=== PATIENT | female | born 1935 | race Caucasian/White ===

== ENCOUNTER 2020-12-16 18:15 | Observation (INO) | payer MEDICARE, SELFPAY ==
[2020-12-16] VITALS (29 sets, daily range): BP systolic 134–159; BP diastolic 70–93; PULSE 72–94; RESP 15–24; TEMP 36.8; O2SAT 94–98
--- NOTE | ~2020-12-16 | XR_ITS ---
EXAMINATION: XR chest 2V EXAM DATE: 12/16/2020 20:27 INDICATION: Syncope, shaking. Tired. Atrial fibrillation, CHF. TECHNIQUE: Frontal and lateral projections of the chest obtained and reviewed. There is no prior vishnu dy for comparison. FINDINGS: Moderate cardiomegaly. There is aortic arteriosclerosis. No confluent consolidation, pneum othorax or pleural effusion suspected. Dense mitral annular calcifications. Sternotomy wires are pres ent without findings to suggest sternal dehiscence. The bones are osteopenic. There are bony degener ative changes. Multiple treated thoracolumbar compression fractures several untreated thoracic compre ssion fractures. IMPRESSION: 1. Cardiomegaly, congestion. 2. Chronic findings. Reviewed, dictated and finalized at location A.
--- NOTE | ~2020-12-16 | CT_ITS ---
EXAMINATION: CT brain wo [facility] EXAM DATE: 12/16/2020 20:23 INDICATION: Syncope. Seizure. TECHNIQUE: Spiral CT of the head was performed without contrast. Axial, coronal and sagittal images were reviewed. The dose-length product (DLP) for this examination was 605.33 mGy-cm. The exposure w as tailored according to patient size, and iterative reconstruction (ASIR) was used as additional dos e reduction technique. There is no prior study for comparison. FINDINGS: There is no acute intraparenchymal hemorrhage. No evidence of intraparenchymal brain mass lesion. No evidence of acute infarction. Please note that initial head CT has limited sensitivity f or small or acute infarctions. There is mild periventricular and subcortical hypodensity, nonspecific but probably related to small vessel ischemic disease. There is mild to moderate prominence of the sulci and ventricles related to cerebral atrophy. There is intracranial carotid arteriosclerosis. There are no extra-axial collections. There is no mass effect or midline shift. Patient has had bi lateral ocular lens surgery. Soft tissue is unremarkable. The visualized sinuses and mastoid air ce lls are well aerated. IMPRESSION: 1. No acute intracranial findings. 2. Chronic age related findings. Reviewed, dictated and finalized at location A.
--- NOTE | ~2020-12-16 | US_ITS ---
EXAMINATION: US carotid duplex BI DATE: 12/17/2020 12:53 INDICATION: Syncope. TECHNIQUE: Grayscale, color Doppler, and pulsed Doppler images of the cervical carotid arteries were obtained. The degree of vessel stenosis is placed in one of the following categories: normal, <50%, 5 0-69%, >=70% but less than near-occlusion, near-occlusion, or total occlusion. Note that percent sten osis relative to normal distal artery lumen diameter is indirectly measured from velocity measurement s as described by Austin, et al. Radiology 2003; 229:340-346. COMPARISON: None. FINDINGS: There is an arrhythmia. RIGHT: The right common carotid artery (CCA) peak systolic velocity (PSV) is 78 cm/s. The right internal car otid artery (ICA) PSV is 100 cm/s. The right ICA end-diastolic velocity (EDV) is 21 cm/s. The right I CA/CCA PSV ratio is 1.3. Grayscale and color Doppler images yield an estimate of <50% diameter reduct ion from plaque in the ICA. There is antegrade flow in the right vertebral artery. LEFT: The left CCA PSV is 84 cm/s. The left ICA PSV is 67 cm/s. The left ICA EDV is 5 cm/s. The left ICA/CC A PSV ratio is 0.8. Grayscale and color Doppler images yield an estimate of <50% diameter reduction f rom plaque in the ICA. There is antegrade flow in the left vertebral artery. IMPRESSION: 1. <50% stenosis in the right internal carotid artery. 2. <50% stenosis in the left internal carotid artery. 3. Arrhythmia. Reviewed, dictated and finalized at location A.
--- NOTE | ~2020-12-16 | MR_ITS ---
EXAMINATION: MR brain/brain stem wo/w con DATE: 12/17/2020 12:32 INDICATION: Seizure. TECHNIQUE: Magnetic resonance imaging (MRI) of the brain and brainstem was performed without and with 9 mL MultiHance intravenous contrast. Sequences included sagittal and axial T1-weighted FSE, axial d iffusion-weighted FS EPI, axial T2*-weighted GRE, axial T2-weighted FLAIR Propeller, and axial T2-mandeep ghted Propeller. Postcontrast sequences included axial, sagittal, and coronal T1-weighted FSE. Appare nt diffusion coefficient (ADC) maps were created. COMPARISON: Head CT 12/16/2020 FINDINGS: There are scattered areas of nonspecific increased T2-weighted signal intensity in the cere bral white matter and narciso. There are small old infarcts in the cerebellum bilaterally. There is no i ntracranial hemorrhage, acute infarction, or abnormal intracranial mass lesion. The ventricles are no rmal in size. There are likely changes of ocular lens replacement surgeries. The paranasal sinuses ar e clear. The mastoid air cells are normal. IMPRESSION: 1. 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 2. Mild nonspecific cerebral white matter disease and pontine disease, which likely represents chroni c small vessel ischemic disease. Reviewed, dictated and finalized at location A. IMPRESSION: 1. 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 2. Mild nonspecific cerebral white matter disease and pontine disease, which al hernandez represents chronic small vessel ischemic disease.
--- NOTE | 2020-12-16 18:55 | ECG_ITS ---
Measurements Intervals Brooks Rate: 80 P: IA: 0 QRS: 120 QRSD: 106 T: -25 QT: 367 QTc: 426 Interpretive Statements ATRIAL FIBRILLATION INCOMPLETE RIGHT BUNDLE BRANCH BLOCK HIGH LATERAL INFARCT, AGE INDETERMINATE BORDERLINE ST-T WAVE ABNORMALITY- INFERIOR LEADS BASELINE ARTIFACT- V3-V6 ABNORMAL ECG Electronically Signed On 12-16-2020 20:37:17 CDT by Krystian Lester D.O.
[2020-12-16 19:18] LABS: Basophils Absolute Auto 0.1 K/mm3 (0.0-0.1); Eosinophils Absolute Auto 0.1 K/mm3 (0-0.3); Eosinophils Percent Auto 2.7 % (0-4.4); Hematocrit 40.1 % (37.0-47.0); Hemoglobin 12.6 g/dL (12.0-15.0); Immature Granulocyte Absolute 0.01 K/mm3 (0.00-0.031); Immature Granulocyte Percent A 0.2 % (0-0.5); Lymphocytes Absolute Auto 0.41 K/mm3 (0.9-3.2); Lymphocytes Percent Auto 8.5 % (18.3-44.2); Mean Corpuscular HGB Conc 31.4 g/dl (32-36); Mean Corpuscular Hemoglobin 30.8 pg (26-34); Mean Platelet Volume 9.9 fl (7.4-10.4); Monocytes Absolute Auto 0.5 K/mm3 (0.1-0.6); Monocytes Percent Auto 11.1 % (2.6-8.5); Neutrophils Absolute Auto 3.7 K/mm3 (1.3-6.7); Neutrophils Percent Auto 76.5 % (45.5-73.1); Platelet Count Result 200 k/mm3 (150-375); Red Blood Count 4.09 M/mm3 (4.2-5.4); Red Cell Distribution Width 14.7 % (11.5-14.5); White Blood Count 4.9 K/mm3 (4.5-10.0)
[2020-12-16 19:34] LABS: Anion Gap 9 mmol/L (8-16); Blood Urea Nitrogen 21 mg/dL (7-17); Calcium 9.5 mg/dL (8.4-10.2); Carbon Dioxide 30 mmol/L (22-30); Chloride 100 mmol/L (98-107); Estimated CRCL calculation 25 ml/min; Estimated Glomerular Filt Rate 47; Glucose 126 mg/dL (65-105); Potassium 4.4 mmol/L (3.4-5.0); Sodium 139 mmol/L (137-145)
--- NOTE | 2020-12-16 19:53 | ED.SYNCOPE ---
HPI - Syncope General Chief Complaint: Syncope Stated Complaint: Period of unresponsiveness Time Seen by Provider: 12/16/20 19:23 Source: patient, family and RN notes reviewed Mode of arrival: EMS Limitations: no limitations History of Present Illness HPI narrative: This is an 85 year old female with history CHF, atrial fibrillation who presents for evaluation of a possible syncopal episode. Patient's daughter in law states patient walked into the living room after eating. PAtient's son heard patient drop her glass and he found her slumped over. He told patient's daughter in law that he saw patient shaking all extremities and her eyes were closed. Patient would not respond to them for 5 minutes when they called her name. Patient's daughter in law report patient had a blank stare for a few minutes once she opened her eyes. Shortly afterwards, she started talking and she did not have any confusion. Patient is back to her baseline. Patient states she feels fine and she denies feeling bad prior to this episode. Patient recently moved in with her son and daughter in law 2 weeks ago so she does not have primary care in this area. Related Data Home Medications Medication Instructions Recorded Confirmed apixaban [Eliquis] 2.5 mg PO BID 12/16/20 carvedilol 6.25 mg PO BID 12/16/20 digoxin 125 mcg PO DAILY 12/16/20 furosemide 40 mg PO BID 12/16/20 potassium chloride [Klor-Con M20] 20 meq PO BID 12/16/20 Allergies Allergy/AdvReac Type Severity Reaction Status Date / Time No Known Allergies Allergy Unverified 12/16/20 18:31 Review of Systems Review of Systems: All systems reviewed & are unremarkable except as noted in HPI and below Constitutional: Constitutional: Denies chills and Denies fever(s) Eyes: Eyes: Denies change in vision Cardiovascular: Cardiovascular: Denies chest pain Respiratory: Respiratory: Denies cough and Denies dyspnea Gastrointestinal: Gastrointestinal: Denies abdominal pain, Denies nausea and Denies vomiting Neurologic: Denies headache(s) and Denies weakness PMFSH Past Medical History Medical History (Updated 12/16/20 @ 21:04 by Gaviota Beckford MD) Atrial fibrillation CHF (congestive heart failure) Social History Social History (Updated 12/16/20 @ 19:58 by Gaviota Beckford MD) Smoking status: Never smoker Exam Const: General: no acute distress and alert Orientation/consciousness: patient oriented x3 Eyes: EOM: EOMs intact bilaterally Resp: Effort & Inspection: normal respiratory effort and no retractions Auscultation: clear to auscultation bilaterally Cardio: Rate: regular rate Rhythm: abnormal rhythm Heart sounds: Murmur heart sound present GI: GI Palp: Yes Soft to palpation, No Tenderness to palpation present (GI) and No Guarding due to palpation present (GI) Auscultation: normal bowel sounds Skin: Other: bilateral lower leg hyperpigmentation Neuro: General: patient oriented x3, moves all extremities and CN's II-XI intact bilaterally Extrem: General: edema Psych: Mental Status: mental status grossly normal Affect: normal affect Course Reevaluation(s) Reevaluation #1: I discussed evaluation with patient and her daughter in law. They are agreeable to observation for evaluation of syncope vs seizure. Date: 12/16/20 Time: 21:01 Consultations Consultation #1: I have discussed case with Dr. Johnson who accepts patient to medical floor for evaluation. She recommends MRI, echo, carotid doppler Date: 12/16/20 Time: 21:02 Vital Signs Vital signs: Vital Signs Temperature 98.3 F 12/16/20 18:21 Pulse Rate 82 12/16/20 18:21 Respiratory Rate 24 H 12/16/20 18:21 Blood Pressure 142/74 H 12/16/20 18:21 Pulse Oximetry 96 12/16/20 18:21 Temperature 98.3 F 12/16/20 18:21 Pulse Rate 85 12/16/20 20:49 Respiratory Rate 19 12/16/20 20:45 Blood Pressure 145/80 H 12/16/20 20:46 Pulse Oximetry 95 12/16/20 20:49 MDM
[2020-12-16 20:13] LABS: Magnesium 2.3 mg/dL (1.6-2.3)
[2020-12-16 20:17] LABS: Digoxin 0.6 ng/mL (0.8-2.0)
[2020-12-16 20:26] LABS: Troponin I < 0.012 ng/mL (0.000-0.034)
[2020-12-16 21:10] LABS: Add Urine Microscopic? YES; Appearance Urine Cloudy (Clear); Bacteria Urine Trace /hpf; Bilirubin Urine Negative (Negative); Blood Urine Negative (Negative); Color Urine Yellow (Yellow); Glucose Urine UA Negative (Negative); Ketones Urine Negative (Negative); Leukocyte Esterase Ur Negative LEU/UL (Negative); Nitrate Urine Positive (Negative); Protein Urine 1+ mg/dL (Negative); RBC Urine 0-2 /hpf (0-2); Specific Grav Ur 1.012 (1.001-1.035); Squamous Epithelial Cell Urine Rare /hpf (Few); Urobilinogen Urine Negative mg/dL (<2.0)
--- NOTE | 2020-12-16 22:29 | ADMGEN ---
This patient, Zee Mccracken, was admitted to 3 Med Surg Room 307-02. Patient/family oriented to hospital policies and general routines including ID bracelet, bed and alarms, visiting hours, pain management, procedures, bathroom and other care routines, personal items, smoking policy, room service/diet, and visiting hours. Information on how to activate the Rapid Response Team has been discussed. Patient/Family are encouraged to report perceived risks to care and to ask questions if they do not understand what they are told or what they should do.
[2020-12-17] VITALS (11 sets, daily range): BP systolic 107–125; BP diastolic 58–71; PULSE 50–88; RESP 16–18; TEMP 36.6–36.9; O2SAT 90–96; BMI 17.6
--- NOTE | 2020-12-17 04:27 | PM.IMHP ---
H&P: HPI History of Present Illness Date/Time: 12/17/20 04:27 Chief Complaint: syncope Narrative: this is an 85-year-old female with past medical history significant for coronary artery disease status post coronary artery bypass graft: On chronic anticoagulation for atrial fibrillation rate controlled, congestive heart failure. patient was brought to the emergency room after she had supper and was sitting she was noted to dropped her mom good and was slumped over which lasted for roughly 5 minutes according to daughter in-law diet is at bedside. patient denies any issues at the time of my visit she has been her usual state of health she just recently moved in with her son and daughter in [place] and things seem to be okay up until after supper when did is episode took place. patient denies any fevers rigors chills chest pain PND orthopnea shortness of breath cough sputum production nausea vomiting diarrhea or abdominal pain. preliminary workup was essentially nonrevealing decision has been made to place patient in observation. Review of Systems Review of Systems: Narrative: syncope Constitutional: Constitutional: Denies fatigue, Denies fever(s) and Denies weakness Eyes: Eyes: Denies change in vision ENT: Denies nasal congestion, Denies nasal discharge and Denies nasal obstruction Cardiovascular: Cardiovascular: Denies chest pain, Denies chest pain at rest, Denies irregular heart rhythm, Denies lightheadedness, Denies radiating jaw, neck or arm pain, Denies palpitations, Denies dyspnea and Denies dyspnea on exertion Respiratory: Respiratory: Denies cough, Denies dyspnea and Denies wheezing Gastrointestinal: Gastrointestinal: Denies abdominal pain, Denies diarrhea, Denies nausea and Denies vomiting Genitourinary: Genitourinary: Reports no additional female genitourinary complaints Musculoskeletal: Musculoskeletal: Reports no additional musculoskeletal complaints Integumentary/Breasts: Skin/Breast: Reports system reviewed and no additional complaints, except as docu Neurologic: Reports system reviewed and no additional complaints, except as documented Psychiatric: Psychiatric: Reports no additional psychiatric complaints Endocrine: Endocrine: Reports no additional endocrine complaints Hematologic/Lymphatic: Hematologic/Lymphatic: Reports no additional hematologic/lymphatic complaints Allergic/Immunologic: Allergic/Immunologic: Reports no additional allergic/immunologic complaints [facility] Past Medical History Medical History (Updated 12/17/20 @ 04:37 by Ector Johnson MD) Atrial fibrillation CHF (congestive heart failure) Family History Family History (Updated 12/16/20 @ 22:32 by Maria Eugenia Le RN) Father Acute myocardial infarction Cerebrovascular accident Social History Social History (Updated 12/16/20 @ 19:58 by Gaviota Beckford MD) Smoking status: Never smoker Alcohol intake: never Substance use: never Gender identity (if verbalized by the patient): Female Spiritual care concerns: No Meds Home Medications and Allergies Home Medications Medication Instructions Recorded Confirmed Type apixaban [Eliquis] 2.5 mg PO BID 12/16/20 12/16/20 History carvedilol 6.25 mg PO BID 12/16/20 12/16/20 History digoxin 125 mcg PO DAILY 12/16/20 12/16/20 History furosemide 40 mg PO BID 12/16/20 12/16/20 History potassium chloride [Klor-Con M20] 20 meq PO BID 12/16/20 12/16/20 History Allergies Allergy/AdvReac Type Severity Reaction Status Date / Time No Known Allergies Allergy Verified 12/16/20 23:28 Vital Signs Vital Signs - 24 hr 12/16/20 18:21 12/16/20 18:25 12/16/20 18:26 Temperature 98.3 F Pulse Rate 82 84 78 Respiratory Rate 24 H 15 Blood Pressure 142/74 H Pulse Oximetry 96 95 96 12/16/20 18:27 12/16/20 18:30 12/16/20 18:45 Temperature Pulse Rate 88 81 86 Respiratory Rate 16 Blood Pressure Pulse Oximetry 97 96 95 12/16/20 18:47 12/16/20 18:56 12/16/20
--- NOTE | 2020-12-17 06:00 | ECHO_ITS ---
Patient Info Name: Zee Mccracken Age: 85 years : 1935 Gender: Female Ht: 64 in Wt: 102 lbs BSA: 1.44 m2 HR: 69 bpm BP: 125 / 58 mmHg Heart Rhythm: Atrial Fibrillation Technical Quality: Good Exam Date: 12/17/2020 10:15 AM Exam Location: [facility] Patient Status: Outpatient Admit Date: 12/16/2020 Staff Ordering Physician: Gaviota Beckford MD Inclusion Special Education Teacher: Jd Boyle RDCS, RT Attending Provider: Yana Ayala PA-C Referring Physician: Shakeel ZAYAS; Exam Type: CA echo doppler color flow Study Info Indications I50.9 - Heart failure, unspecified Complete two-dimensional, color flow and Doppler transthoracic echocardiogram is performed. Strain analysis performed. Summary 1. Complete two-dimensional, color flow and Doppler transthoracic echocardiogram is performed. 2. Left ventricular chamber dimension is normal. 3. Left ventricular systolic function is hyperdynamic, estimated at >70%. 4. There is mildly increased left ventricular wall thickness. 5. Global longitudinal strain is normal at -19 %. 6. Right ventricular chamber dimension is severely enlarged. 7. Right ventricular systolic function appears moderately reduced with a TAPSE of 0.9. 8. Right atrial chamber dimension is severely enlarged. 9. There is mild highly eccentric aortic valve regurgitation. Severity may be underestimated due to eccentricity. 10. There is torrential tricuspid valve regurgitation. 11. Mild pulmonary hypertension, estimated pulmonary arterial systolic pressure is 41 mmHg. 12. Severely dilated inferior vena cava at 4.4cm with no collapse upon inspiration consistent with significantly elevated right atrial pressure, >15 mmHg. Left Ventricle Left ventricular chamber dimension is normal. Left ventricular systolic function is hyperdynamic, estimated at >70%. There is mildly increased left ventricular wall thickness. The left ventricular diastolic function is indeterminate. Global longitudinal strain is normal at -19 %. Right Ventricle Right ventricular chamber dimension is severely enlarged. Right ventricular systolic function appears moderately reduced with a TAPSE of 0.9. Left Atria Left atrial chamber dimension is mildly enlarged. Right Atria Right atrial chamber dimension is severely enlarged. Aortic Valve The aortic valve is trileaflet. There is mild aortic valve sclerosis. There is no aortic valve stenosis. There is mild highly eccentric aortic valve regurgitation. Severity may be underestimated due to eccentricity. Pulmonic Valve The pulmonic valve is normal. There is mild to moderate pulmonic regurgitation. Mitral Valve The mitral valve has thickened leaflets and calcified leaflets. There is mild mitral valve regurgitation. The mitral valve annulus is severely calcified. No hemodynamically significant mitral stenosis. Tricuspid Valve The tricuspid valve leaflets are normal. There is torrential tricuspid valve regurgitation. Mild pulmonary hypertension, estimated pulmonary arterial systolic pressure is 41 mmHg. Pericardium/Pleural The pericardium appears normal. There is no pericardial effusion. Inferior Vena Cava Severely dilated inferior vena cava at 4.4cm with no collapse upon inspiration consistent with significantly elevated right atrial pressure, >15 mmHg. Aorta The aortic root size at the sinus of Valsalva is normal. There is mild aortic atherosclerosis. Left Ventricular Outflow Tract
[2020-12-17 06:49] LABS: NT Pro B Type Natriuretic Pept 6230 pg/mL (5-100)
[2020-12-17] MEDS: FUROSEMIDE 40 MG TABLET PO ×2 (11:34→16:37)
[2020-12-17] MEDS: DIGOXIN TAB 125 MCG TABLET PO (11:34)
[2020-12-17] MEDS: carvediloL 6.25 MG TABLET PO ×2 (11:34→16:37)
[2020-12-17] MEDS: APIXABAN 2.5 MG TABLET PO ×2 (11:35→22:11)
[2020-12-17] MEDS: POTASSIUM CHLORIDE 20 MEQ TABLET.ER PO ×2 (11:35→16:37)
--- NOTE | 2020-12-17 16:34 | PM.IMPN ---
Progress Note: A&P Assessment and Plan (1) Syncope and collapse: Code(s): R55 - Syncope and collapse Status: Acute Assessment and Plan: Patient reportedly was walking into the living room after sitting at the dinner table and slumped over. Family reports she felt fine and was alert once she regained attention but did not recall the event. Etiology unclear; may be related to vasovagal response vs. arrhythmia. She is known to have a fib but has had two 3-second pauses identified on telemetry. MRI brain shows old strokes, unknown to patient and discussed with patient and family. No evidence of acute stroke. Carotid US normal. Echocardiogram noted. PT/OT, observe overnight and hopeful for discharge tomorrow after arranging Holter monitor for outpatient evaluation. Follow up with cardiology -She wants to follow with one of our cardiologists (used to see a carbon grinder in [place] years ago and has not followed with anyone in recent years). (2) Atrial fibrillation: Code(s): I48.91 - Unspecified atrial fibrillation Status: Acute Assessment and Plan: Continue digoxin, carvedilol. Continue apixaban. (3) CHF (congestive heart failure): Code(s): I50.9 - Heart failure, unspecified Status: Chronic Assessment and Plan: Appears euvolemic. Continue carvedilol and digoxin. BNP elevated. Resume her Lasix. Monitor I&Os, daily weights. Echocardiogram shows EF 70% with severe right atrial and ventricular enlargement; mild pulmonary hypertension, aortic and tricuspid regurgitation (4) Coronary artery disease: Code(s): I25.10 - Atherosclerotic heart disease of [place] coronary artery without angina pectoris Status: Chronic Assessment and Plan: Stable, no chest pain. 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 Subjective Date/time seen: 12/17/20 1430 Interval history: Ms. Mccracken is an 85yo F admitted for evaluation after syncopal episode. She reports feeling well today. She has had two pauses on telemetry with which she is completely asymptomatic today. She denies chest pain, palpitations, shortness of breath, nausea or vomiting. She does not remember passing out yesterday. Family reports she was completely alert right after waking back up. Tells me she is eating and drinking okay. No dizziness or lightheadedness today. Review of Systems Review of Systems: All systems reviewed & are unremarkable except as noted in HPI and below Exam Narrative: Exam Narrative: General: Frail elderly female resting comfortably sitting up in bed in no acute distress, visiting with family. HEENT: Normocephalic, EOMI, oral mucosa moist. Cardiovascular: Rate is normal, rhythm irregular. Two 3-second pauses noted on telemetry with quick recoveries of rates back into 70s. Telemetry otherwise showing A fib. Respiratory: Lungs clear to auscultation bilaterally. Respirations even and non-labored. Tolerating room air. Abdomen: Soft, non-tender, non-distended, bowel sounds present. Extremities: Peripheral pulses intact. No edema or pain to palpation. Neuro: Awake and alert; answering questions appropriately. No focal neurological deficits. Speech is clear. Objective Data Vital Signs Vital Signs: Last Vital Signs Temp 98.0 F 12/17/20 14:00 Pulse 64 12/17/20 16:37 Resp 16 12/17/20 14:00 BP 114/63 12/17/20 14:00 Pulse Ox 94 12/17/20 14:00 Intake/Output Intake/Output: Intake & Output 12/14/20 12/15/20 12/16/20 12/17/20 23:59 23:59 23:59 23:59 Intake Total 740 Output Total 400 Balance 340 Meds/Results Medications: Active Medications Generic Name Dose Route Start Last Admin Trade Name Freq PRN Reason Stop Dose Admin Apixaban 2.5 mg 12/17/20 09:00 12/17/20 11:35 Apixaban 2.5 Mg Tablet PO 2.5 mg Q12HR GILBERTO
[2020-12-18] VITALS (8 sets, daily range): BP systolic 100–146; BP diastolic 63–86; PULSE 60–78; RESP 17; TEMP 36.4; O2SAT 94
[2020-12-18 06:19] LABS: Hematocrit 35.2 % (37.0-47.0); Hemoglobin 11.1 g/dL (12.0-15.0); Mean Corpuscular HGB Conc 31.5 g/dl (32-36); Mean Corpuscular Hemoglobin 30.5 pg (26-34); Mean Corpuscular Volume 96.7 fl (80-100); Mean Platelet Volume 10.1 fl (7.4-10.4); Platelet Count Result 170 k/mm3 (150-375); Red Blood Count 3.64 M/mm3 (4.2-5.4); Red Cell Distribution Width 14.5 % (11.5-14.5); White Blood Count 5.1 K/mm3 (4.5-10.0)
[2020-12-18 06:27] LABS: Chloride 101 mmol/L (98-107)
[2020-12-18 06:32] LABS: Anion Gap 6 mmol/L (8-16); Blood Urea Nitrogen 15 mg/dL (7-17); Carbon Dioxide 30 mmol/L (22-30); Estimated CRCL calculation 34 ml/min; Estimated Glomerular Filt Rate > 60; Glucose 89 mg/dL (65-105); Magnesium 2.1 mg/dL (1.6-2.3); Potassium 3.4 mmol/L (3.4-5.0); Sodium 137 mmol/L (137-145)
[2020-12-18] MEDS: carvediloL 6.25 MG TABLET PO (08:03)
[2020-12-18] MEDS: POTASSIUM CHLORIDE 20 MEQ PACKET (FOR LIQUID) PO (08:03)
[2020-12-18] MEDS: DIGOXIN TAB 125 MCG TABLET PO (08:05)
[2020-12-18] MEDS: APIXABAN 2.5 MG TABLET PO (08:05)
[2020-12-18] MEDS: POTASSIUM CHLORIDE 20 MEQ TABLET.ER PO (08:05)
[2020-12-18] MEDS: FUROSEMIDE 40 MG TABLET PO (08:05)
--- NOTE | 2020-12-18 08:41 | PM.DS ---
DS: Admitting Diagnosis Admitting Diagnosis Admitting Diagnosis: Syncope DS: Discharge Diagnosis Discharge Diagnosis (1) Syncope and collapse: Code(s): R55 - Syncope and collapse Status: Acute Assessment and Plan: Date of Admission 12/16/20 Date of Discharge 12/18/20 Ms. Mccracken is a pleasant 85yo F with history of paroxysmal atrial fibrillation, CHF, and coronary artery disease who presented to the ED for evaluation after a syncopal episode at a family member's house. Patient reportedly was walking into the living room after sitting at the dinner table and slumped over. She did not fall. Family reports she felt fine and was alert once she regained attention but patient did not recall the event. Etiology unclear; may be related to vasovagal response vs. arrhythmia. She is known to have a fib but has had two 3-second pauses identified on telemetry. She is discharged with an order for Holter monitor and will go downstairs to the cardiology office to have it placed prior to leaving the hospital today. Follow up with cardiology is recommended. She wants to follow with one of our cardiologists (used to see a sports physical therapist in [place] years ago and has not followed with anyone in recent years). MRI brain shows old strokes, unknown to patient and discussed with patient and family. No evidence of acute stroke. Carotid US normal. Echocardiogram noted and detailed below. Worked well with PT/OT. She is feeling well for over 24 hours and is hemodynamically stable for discharge home. Patient and family are in agreement for discharge plan and will follow up with PCP and cardiology. Educated on return to ER instructions. (2) Atrial fibrillation: Code(s): I48.91 - Unspecified atrial fibrillation Status: Acute Assessment and Plan: Continue digoxin, carvedilol. Continue apixaban. (3) CHF (congestive heart failure): Code(s): I50.9 - Heart failure, unspecified Status: Chronic Assessment and Plan: Appears euvolemic. Continue carvedilol and digoxin. BNP elevated. Home lasix resumed. Echocardiogram shows EF 70% with severe right atrial and ventricular enlargement; mild pulmonary hypertension, aortic and tricuspid regurgitation (4) Coronary artery disease: Code(s): I25.10 - Atherosclerotic heart disease of [place] coronary artery without angina pectoris Status: Chronic Assessment and Plan: Stable, no chest pain. 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 DS: Summary Hospital Course Hospital Course: See above Time Spent with Patient Time attestation: Total time spent providing and/or coordinating discharge services: 40 minutes Exam Narrative: Exam Narrative: General: Frail elderly female resting comfortably sitting up in bed in no acute distress, visiting with family. HEENT: Normocephalic, EOMI, oral mucosa moist. Cardiovascular: Rate is normal, rhythm irregular. Two 3-second pauses noted on telemetry with quick recoveries of rates back into 70s. Telemetry otherwise showing A fib. Respiratory: Lungs clear to auscultation bilaterally. Respirations even and non-labored. Tolerating room air. Abdomen: Soft, non-tender, non-distended, bowel sounds present. Extremities: Peripheral pulses intact. No edema or pain to palpation. Neuro: Awake and alert; answering questions appropriately. No focal neurological deficits. Speech is clear. DS: Data Additional Comments Additional comments: Last Vital Signs Temp 97.5 F L 12/18/20 05:22 Pulse 78 12/18/20 12:00 Resp 17 12/18/20 05:22 BP 146/79 H 12/18/20 10:53 Pulse Ox 94 12/18/20 05:[address] 12/16/20 20:24 IMPRESSION: 1. No acute intracranial findings. 2. Chronic age related findings. Chest X-Ray 0
== END 2020-12-18 13:30 | disposition home or self-care (01) ==
LOC: ANHED 21:04 → ANH3MEDSUR 21:54
PROVIDERS: Emergency Medicine; Physician Assistant; Admitting Provider Internal Medicine; Emergency Provider General Practice; Visit Provider Internal Medicine
DX: R55 Syncope and collapse (principal); R82.71 Bacteriuria; B96.20 Unspecified Escherichia coli [E. coli] as the cause of diseases classified elsewhere; I48.91 Unspecified atrial fibrillation; I11.0 Hypertensive heart disease with heart failure; I50.9 Heart failure, unspecified; I25.10 Atherosclerotic heart disease of native coronary artery without angina pectoris; Z95.1 Presence of aortocoronary bypass graft; Z79.01 Long term (current) use of anticoagulants
CPT/HCPCS: 36415; 70450; 70553; 71046; 80048; 80162; 81001; 83735; 83880; 84484; 85025; 85027; 87077; 87086; 87186; 93005; 93306; 93880; 96365; 97110; 97116; 97161; 97165; 97535; 99285; A9270; A9577; G0378; J0696

== ENCOUNTER 2021-01-10 17:20 | Emergency (ER) | payer MEDICARE, SELFPAY ==
[2021-01-10 17:25] VITALS: BP 153/95; PULSE 75; RESP 15; TEMP 36.6; O2SAT 99
--- NOTE | 2021-01-10 17:55 | ED.URI ---
HPI - URI/Sore Throat General Chief Complaint: Upper Respiratory Infection Stated Complaint: Cough,Runny nose Source: patient, family and RN notes reviewed Mode of arrival: ambulatory History of Present Illness HPI Narrative: This is a 85-year-old female that presented to urgent care with complaints of cough, itchy throat, runny nose and fatigue for approximately 1 week. According to patient's son his was recently seen in her primary care physician office due to shortness of breath and was given an inhaler. Since then his mother has also developed symptoms. They did give her [id number] medication at home. She has at her Covid vaccinated with [employer]. The patient denies SOB, CP, palpitation, extremity numbness, lightheadedness, dizziness, constipation, diarrhea, chills, or fever. MD elicited complaint: cough, sore throat and rhinorrhea Related Data Home Medications Medication Instructions Recorded Confirmed Eliquis 2.5 mg PO BID 12/16/20 12/16/20 carvedilol 6.25 mg PO BID 12/16/20 12/16/20 digoxin 125 mcg PO DAILY 12/16/20 12/16/20 furosemide 40 mg PO BID 12/16/20 12/16/20 potassium chloride [Klor-Con M20] 20 meq PO BID 12/16/20 12/16/20 Allergies Allergy/AdvReac Type Severity Reaction Status Date / Time No Known Allergies Allergy Verified 01/10/21 17:24 Review of Systems Review of Systems: Narrative: A 14 organ system Review of Systems was performed and pertinent positives included in the HPI, otherwise remaining ROS is negative. All systems reviewed & are unremarkable except as noted in HPI and below PMFSH Past Medical History Medical History (Updated 01/10/21 @ 17:54 by DAXA Owens) Atrial fibrillation CHF (congestive heart failure) Coronary artery disease Family History Family History (Updated 12/16/20 @ 22:32 by Maria Eugenia Le, [place]) Father Acute myocardial infarction Cerebrovascular accident Social History Social History (Updated 12/16/20 @ 19:58 by Gaviota Beckford MD) Smoking status: Never smoker Alcohol intake: never Substance use: never Gender identity (if verbalized by the patient): Female Spiritual care concerns: No Exam Narrative: Exam Narrative: GENERAL: This is a well-nourished, well-developed patient, in no apparent distress. HEAD: normocephalic, atraumatic. EYES: PERRL. Sclera clear/white. Vision is grossly intact. EARS: External ears normal, auditory canals clear and without drainage, TMs normal without perforation. Hearing grossly intact. NOSE: External nose normal with no obvious nasal discharge, nares without redness, no rhinorrhea. THROAT: Mucous membranes moist, posterior pharynx mouth erythematous and edematous NECK: Neck supple, non-tender without lymphadenopathy, masses or thyromegaly. CARDIOVASCULAR: Regular rate and rhythm without murmurs, gallops, or rubs. RESPIRATORY: Clear to auscultation. Breath sounds equal bilaterally. No wheezes, rales, or rhonchi. GASTROINTESTINAL: Abdomen soft, non-tender, nondistended. Bowel sounds are active. No hepato-splenomegaly, or palpable masses. No guarding. SKIN: warm, intact with no suspicious lesions or rash, good texture and turgor. NEURO: awake, alert, and oriented to person, place and time. There were no obvious focal neurologic abnormalities. Steady gait EXTREMITIES: Normal range of motion. No edema. No calf tenderness. Negative Homans sign bilaterally. BACK: Nontender without deformity or crepitance. No flank tenderness. Course Course Emergency Course: Patient was given amoxicillin 500 mg twice daily x5 days, Misael Winn and instructed to use [id number] medication MDM - URI/Sore Throat Differential Diagnosis Differential diagnosis: Likely upper respiratory infection, otitis media, sinusitis and pharyngitis Discharge Plan Discharge Clinical Impression: Pharyngitis Qualifiers: Pharyngitis/tonsillitis etiology: unspecified etiology Qualified Code(s): J02.9 - Acute pharyng
== END 2021-01-10 18:12 | disposition home or self-care (01) ==
PROVIDERS: Emergency Provider Nurse Practitioner; PCP Family Medicine
DX: J02.9 Acute pharyngitis, unspecified (principal); I48.91 Unspecified atrial fibrillation; I50.9 Heart failure, unspecified; I25.10 Atherosclerotic heart disease of native coronary artery without angina pectoris
CPT/HCPCS: 99213; G0463

== ENCOUNTER 2021-05-01 10:11 | Outpatient (RCR) | payer MEDICARE, SELFPAY ==
[2021-05-01 10:54] VITALS: BMI 17.3
== END 2021-07-11 12:10 | disposition home or self-care (01) ==
LOC: ANHWOC 10:11
PROVIDERS: PCP Family Medicine; Visit Provider Nurse Practitioner Family
DX: S81.801D Unspecified open wound, right lower leg, subsequent encounter (principal)
CPT/HCPCS: 99212; G0463

== ENCOUNTER 2021-10-28 10:09 | Inpatient (IN) | payer MEDICARE, SELFPAY ==
[2021-10-28] VITALS (7 sets, daily range): BP systolic 122–137; BP diastolic 55–81; PULSE 57–72; RESP 16–38; TEMP 36–36.7; O2SAT 97–100; BMI 19.0
--- NOTE | ~2021-10-28 | US_ITS ---
EXAMINATION: US art doppler w sole ARORA DATE: 10/28/2021 12:27 INDICATION: Nonpalpable pedal pulses TECHNIQUE: Segmental pressures and plethysmographic and Doppler waveforms of the brachial and lower e xtremity arteries were obtained. COMPARISON: None. FINDINGS: Right and left brachial artery pressures of 134 mm Hg and 140 mm Hg, respectively, are concordant (no rmal difference <= 30 mmHg). The right and left high-thigh pressure indices are 1.09 and 0.17, respec tively (normal > 1.2). The bilateral ankle-brachial indices were unable to be obtained due to patient 's inability to tolerate compression along either calf. The right great toe-brachial index (TBI) is 0.63 (normal >= 0.6-0.8). Arterial waveforms are biphasic with brisk systolic upstrokes throughout the arteries of the right lower limb. The left TBI is 0.64. Arterial waveforms are biphasic with a systolic upstrokes at the left common fe moral, superficial femoral, popliteal and dorsalis pedis arteries. There appears to be potential flow reversal in the left posterior tibial artery. IMPRESSION: 1. Arterial occlusive disease to the right lower limb with mildly decreased right high thigh pressure index and borderline right TBI. 2. Arterial occlusive disease to the left lower limb with asymmetric severely decreased pressures at the left thigh but with borderline left TBI. Reviewed, dictated and finalized at location A. IMPRESSION: 1. Arterial occlusive disease to the right lower limb with mildly decreased rig ht high thigh pressure index and borderline right TBI. 2. Arterial occlusive disease to the left lower limb with asymmetric severely d ecreased pressures at the left thigh but with borderline left TBI.
--- NOTE | ~2021-10-28 | XR_ITS ---
XR chest 1V portable DATE: 10/28/2021 14:53 INDICATION: Leg swelling TECHNIQUE: Portable upright AP chest on 10/28/2021 at 1448 hours COMPARISON: 12/16/2020 AP and lateral chest FINDINGS: There is cardiomegaly. There is mitral annulus calcification. Pulmonary vascularity appears within normal range. Aortic calcification. There is mild infiltrate or atelectasis in the lower lung zones. Status post sternotomy. There fracture deformities and vertebroplasty at multiple lower thoracic and lumbar vertebral bodies. Diffuse osteopenia. IMPRESSION: Cardiomegaly Aortic atherosclerosis Bibasilar infiltrate and/atelectasis Reviewed, dictated and finalized at location B.
--- NOTE | 2021-10-28 10:30 | ED.EXTPRO ---
HPI - Extremity Problem General Chief complaint: Extremity Problem,Nontraumatic Stated complaint: cellulitis Time Seen by Provider: 10/28/21 10:15 History of Present Illness HPI Narrative: Patient is an 86-year-old female with a history of congestive heart failure, hypertension, atrial fibrillation (eliquis), who currently lives in a fci, here with her daughter for evaluation of bilateral lower extremity swelling and pain, L>R. Patient states she is not sure how long the issue has been going on, but patient's daughter states she noticed her legs were discolored/dusky about 2 days ago. She has been able to walk, but with pain. She is able to move and feel her toes and feet. She does note a small skin tear over left lower extremity. Patient saw her PCP this morning was told to come to the ED. She takes 40 mg of Lasix twice daily and has not had blood work done recently. Related Data Home Medications Medication Instructions Recorded Confirmed Eliquis 2.5 mg PO BID 12/16/20 10/28/21 carvedilol 6.25 mg PO BID 12/16/20 10/28/21 digoxin 125 mcg PO DAILY 12/16/20 10/28/21 furosemide 40 mg PO BID 12/16/20 10/28/21 Allergies Allergy/AdvReac Type Severity Reaction Status Date / Time No Known Allergies Allergy Verified 10/28/21 07:32 Review of Systems Review of Systems: Gen.: Denies fevers or chills Eyes: Denies eye pain or visual change ENT: Denies congestion Respiratory: Denies shortness of breath or cough CV: Denies chest pain or palpitations GI: Denies abdominal pain nausea, emesis or diarrhea : denies burning, urgency, frequency or hematuria Musculoskeletal: Reports bilateral lower extremity swelling and pain. Denies back pain or muscle pain Neuro: Denies numbness, tingling, weakness or focal weakness Skin: Reports redness to LLE, discoloration to BLE Except as documented, all other systems reviewed and negative [facility] Past Medical History Medical History Adult BMI <19 kg/sq m Anemia Atrial fibrillation Body mass index less than 16.5 CHF (congestive heart failure) Coronary artery disease Rosacea Weight loss, unintentional Family History Family History Father Acute myocardial infarction Cerebrovascular accident Other Pancreatic cancer Social History Social History Alcohol intake: never Substance use: never Gender identity (if verbalized by the patient): Female Spiritual care concerns: No Exam Narrative: APPEARANCE: Well appearing, no pain in distress, well-nourished. Head: normocephalic and atraumatic. EYES: PERRLA/EOMI, conjunctivae clear NOSE: No nasal drainage EARS: External ear normal in appearance THROAT: Oropharynx is clear. Mucous membranes are moist. NECK: Supple. No adenopathy, no masses. RESPIRATORY: Airway patent, respirations nonlabored. Clear to auscultation bilaterally, no rales, rhonchi, wheezing. CARDIOVASCULAR: No palpable DP/PT pulses bilaterally. Monophasic flow heard on doppler signals. Irregular rate and rhythm, without murmurs, rubs, or gallops. ABDOMINAL: Normoactive bowel sounds. Soft, nontender, nondistended. No rebound tenderness or guarding. MUSCULOSKELETAL: 4+ pitting edema bilaterally to lower extremities. Toes with dusky discoloration bilaterally. NEURO: Normal speech. No focal neurologic deficits. SKIN: Bilateral lower extremities are edematous. Left lower extremity is red, warm to the touch and tender, extending from the foot up to the knee. There is evidence of an old wound overlying the left lower extremity with underlying discoloration/bruising. PSYCHIATRIC: Normal affect/mood. Course Course Emergency Course: Discussed case with hospitalist Kaitlynn who agrees with plan for admission. Vital Signs Vital signs: Vital Signs Temperature 97.6 F 10/28/21 10:16 Pulse Rate
[2021-10-28 11:01] LABS: Basophils Percent Auto 0.8 % (0.2-1.2); Eosinophils Percent Auto 0.8 % (0-4.4); Hemoglobin 11.6 g/dL (12.0-15.0); Immature Granulocyte Absolute 0.02 K/mm3 (0.00-0.031); Immature Granulocyte Percent A 0.4 % (0-0.5); Lymphocytes Absolute Auto 0.35 K/mm3 (0.9-3.2); Lymphocytes Percent Auto 7.4 % (18.3-44.2); Mean Corpuscular HGB Conc 31.4 g/dl (32-36); Mean Corpuscular Hemoglobin 30.1 pg (26-34); Mean Corpuscular Volume 96.1 fl (80-100); Mean Platelet Volume 10.9 fl (7.4-10.4); Monocytes Absolute Auto 0.8 K/mm3 (0.1-0.6); Monocytes Percent Auto 15.9 % (2.6-8.5); Neutrophils Absolute Auto 3.5 K/mm3 (1.3-6.7); Neutrophils Percent Auto 74.7 % (45.5-73.1); Platelet Count Result 171 k/mm3 (150-375); Red Blood Count 3.85 M/mm3 (4.2-5.4); Red Cell Distribution Width 17.2 % (11.5-14.5); White Blood Count 4.7 K/mm3 (4.5-10.0)
[2021-10-28 11:15] LABS: Alanine Aminotransferase 15 U/L (6-35); Albumin Level 4.1 g/dL (3.5-5.1); Alkaline Phosphatase 121 U/L (38-126); Anion Gap 8 mmol/L (8-16); Aspartate Amino Transferase 35 U/L (14-36); Bilirubin,Total 2.3 mg/dL (0.2-1.3); Blood Urea Nitrogen 27 mg/dL (7-17); Calcium 8.7 mg/dL (8.4-10.2); Carbon Dioxide 30 mmol/L (22-30); Chloride 96 mmol/L (98-107); Estimated CRCL calculation 25 ml/min; Estimated Glomerular Filt Rate 47; Glucose 95 mg/dL (65-110); Potassium 4.2 mmol/L (3.4-5.0); Sodium 134 mmol/L (137-145)
[2021-10-28 11:22] LABS: NT Pro B Type Natriuretic Pept 4990 pg/mL (5-100)
--- NOTE | 2021-10-28 12:03 | PC.NURSE ---
pt in ultrasound.
--- NOTE | 2021-10-28 14:08 | ECG_ITS ---
Measurements Intervals [place] Rate: 72 P: CO: 0 QRS: 124 QRSD: 121 T: -31 QT: 386 QTc: 423 Interpretive Statements ATRIAL FIBRILLATION RSR' IN V1 OR V2, CONSIDER RIGHT VENTRICULAR HYPERTROPHY OR RIGHT VCD HIGH LATERAL INFARCT, AGE INDETERMINATE ST-T WAVE ABNORMALITY IN ANT/INF LEADS- CONSIDER ISCHEMIA ABNORMAL ECG Electronically Signed On 10-28-2021 16:34:05 CDT by Krystian Lester D.O.
[2021-10-28 14:35] LABS: Appearance Urine Clear (Clear); Bilirubin Urine Negative (Negative); Color Urine Yellow (Yellow); Glucose Urine UA Negative (Negative); Ketones Urine Negative (Negative); Leukocyte Esterase Ur Trace LEU/UL (Negative); Nitrate Urine Negative (Negative); Protein Urine Negative (Negative)
[2021-10-28 14:36] LABS: Add Urine Microscopic? YES; Blood Urine Trace-Intact (Negative)
[2021-10-28 14:37] LABS: Bacteria Urine Trace /hpf; RBC Urine 0-2 /hpf (0-2); WBC Urine 0-3 /hpf
[2021-10-28 15:20] LABS: SARS-CoV-2 RNA PCR Negative
[2021-10-28] MEDS: FUROSEMIDE INJ 40 MG/4 ML VIAL IV PUSH (15:29)
--- NOTE | 2021-10-28 15:58 | PM.IMHP ---
H&P: HPI History of Present Illness Date/Time: Patient was placed observation status for expected length of stay less than 23 hours for management, will plan to re-evaluate tomorrow for improvement. 10/28/21 15:58 Chief Complaint: Left lower extremity pain Narrative: Ms. Mccracken is an 86-year-old female who presented emergency room with complaints of increasing edema and pain to her left lower extremity. Patient's daughter states that on mother stay she was visiting her mom and she noticed that there was increasing edema to patient's bilateral lower extremities, but her left lower extremity was reddened. Patient was complaining of mild pain to her left lower extremity at that time. Since that time patient has progressively had more edema and has now formed a blister to her left lateral leg and states the pain is significant. Patient went to see her primary care provider today and was sent to the emergency room for further evaluation. Patient states that she has had issue with this a lower extremity the past. Patient states that she has had did see a offender employment specialist for cellulitis of this extremity. Patient denies any drainage from her left lower extremity. Patient denies any chest pain, shortness a breath, lightheadedness, dizziness, syncopal, or near syncopal episodes. Patient denies any fever or chills. Patient has a known history of atrial fibrillation, coronary artery disease status post coronary bypass grafting, and anemia. Patient states that her coronary bypass grafting was performed approximately 10 years ago at [facility]. Review of Systems Review of Systems: A 12 point review of systems was completed patient all pertinent positive and negative per HPI the remainder are unremarkable. [facility] Past Medical History Medical History Adult BMI <19 kg/sq m Anemia Atrial fibrillation Body mass index less than 16.5 CHF (congestive heart failure) Coronary artery disease Rosacea Weight loss, unintentional Family History Family History Father Acute myocardial infarction Cerebrovascular accident Other Pancreatic cancer Social History Social History Alcohol intake: never Substance use: never Gender identity (if verbalized by the patient): Female Spiritual care concerns: No Meds Home Medications and Allergies Home Medications Medication Instructions Recorded Confirmed Type Eliquis 2.5 mg PO BID 12/16/20 10/28/21 History carvedilol 6.25 mg PO BID 12/16/20 10/28/21 History digoxin 125 mcg PO DAILY 12/16/20 10/28/21 History furosemide 40 mg PO BID 12/16/20 10/28/21 History potassium chloride 20 mEq 20 meq PO BID #60 tablet 03/13/21 10/28/21 Rx tablet,extended release(part/cryst) Allergies Allergy/AdvReac Type Severity Reaction Status Date / Time No Known Allergies Allergy Verified 10/28/21 07:32 Vital Signs Vital Signs - 24 hr 10/28/21 10:16 10/28/21 12:38 Temperature 36.4 C Pulse Rate 71 71 Respiratory Rate 38 H 28 H Blood Pressure 130/81 Pulse Oximetry 98 97 Exam Narrative: Constitutional: Patient is an 86-year-old cachectic female who is in no acute distress. Patient is extremely hard of hearing. Patient is alert and oriented x3 HEENT: Moist mucous membranes. No scleral icterus. No lymphadenopathy. Neck: No carotid bruits noted no JVD noted Lungs: Lung sounds are clear to auscultation bilaterally. No accessory muscle use. No rhonchi, rales, or wheezes noted. Cardiovascular: Apical pulse is irregularly irregular, S1 with variable S2, no S3-S4, 3/6 systolic murmur noted.. Abdomen: Soft, round, and nontender. No palpable masses. Extremities: Patient has 4+ pitting edema to bilateral lower extremities. Nontender. Skin: Patient's left lower extremity has a large amount of erythema starting
--- NOTE | 2021-10-28 17:19 | ADMGEN ---
This patient, Zee Mccracken, was admitted to Medical Room 344-01. Patient/family oriented to hospital policies and general routines including ID bracelet, bed and alarms, visiting hours, pain management, procedures, bathroom and other care routines, personal items, smoking policy, room service/diet, and visiting hours. Information on how to activate the Rapid Response Team has been discussed. Patient/Family are encouraged to report perceived risks to care and to ask questions if they do not understand what they are told or what they should do.
[2021-10-28] MEDS: carvediloL 6.25 MG TABLET PO (21:21)
[2021-10-28] MEDS: APIXABAN 2.5 MG TABLET PO (21:23)
[2021-10-28] MEDS: POTASSIUM CHLORIDE 20 MEQ TABLET.ER PO (21:23)
[2021-10-29] VITALS (8 sets, daily range): BP systolic 113–144; BP diastolic 59–72; PULSE 71–78; RESP 16–22; TEMP 36.1–36.5; O2SAT 91–98
--- NOTE | 2021-10-29 | ECHO_ITS ---
Patient Info Name: Zee Mccracken Age: 86 years : 1935 Gender: Female Ht: 62 in Wt: 104 lbs BSA: 1.43 m2 HR: 78 bpm BP: 113 / 59 mmHg Heart Rhythm: Atrial Fibrillation Technical Quality: Fair Exam Date: 10/29/2021 12:02 PM Exam Location: [facility] Pulmonary Exam Room: 344 Patient Status: Inpatient Admit Date: 10/29/2021 Staff Ordering Physician: Kaitlynn Newby APRN Audit Senior Associate: Krystal Fleming RDCS Attending Provider: Nelson Callejas MD Referring Physician: Odin KOEHLER; Exam Type: CA echo doppler color flow Study Info Indications - increasing edema Complete two-dimensional, color flow and Doppler transthoracic echocardiogram is performed. Summary 1. Complete two-dimensional, color flow and Doppler transthoracic echocardiogram is performed. 2. Left ventricular chamber dimension is normal. 3. Left ventricular systolic function is normal, estimated at 65-70%. 4. Right ventricular chamber dimension is severely enlarged. 5. Right ventricular systolic function is normal. 6. Left atrial chamber dimension is moderately enlarged. 7. Right atrial chamber dimension is severely enlarged. 8. There is mild mitral valve regurgitation. 9. There is mild mitral valve stenosis. 10. There is severe tricuspid valve regurgitation. 11. Moderate pulmonary hypertension, estimated pulmonary arterial systolic pressure is 46 mmHg. 12. Main pulmonary artery dimension is dilated at 3.3 cm. Left Ventricle Left ventricular chamber dimension is normal. Left ventricular systolic function is normal, estimated at 65-70%. There is no increased left ventricular wall thickness. The left ventricular diastolic function is indeterminate. Right Ventricle Right ventricular chamber dimension is severely enlarged. Right ventricular systolic function is normal. Prominent moderator band. Left Atria Left atrial chamber dimension is moderately enlarged. Right Atria Right atrial chamber dimension is severely enlarged. Aortic Valve The aortic valve is trileaflet. There is mild aortic valve sclerosis. There is no aortic valve stenosis. There is trace aortic valve regurgitation. Pulmonic Valve The pulmonic valve is normal. There is mild pulmonic regurgitation. Mitral Valve The mitral valve has thickened leaflets. There is mild mitral valve stenosis. There is mild mitral valve regurgitation. There is mild mitral valve calcification. The mitral valve annulus is severely calcified. Tricuspid Valve The tricuspid valve leaflets are normal. There is severe tricuspid valve regurgitation. Moderate pulmonary hypertension, estimated pulmonary arterial systolic pressure is 46 mmHg. Pulmonary Arteries Main pulmonary artery dimension is dilated at 3.3 cm. Pericardium/Pleural The pericardium appears normal. There is no pericardial effusion. Inferior Vena Cava Dilated inferior vena cava with <50% collapse upon inspiration consistent with Empty right atrial pressure, 15 mmHg. Aorta The aortic root size at the sinus of Valsalva is normal. There is mild aortic atherosclerosis. Left Ventricular Outflow Tract Name Value Normal LVOT 2D LVOT Diameter 2.0 cm
[2021-10-29 05:38] LABS: Basophils Percent Auto 0.9 % (0.2-1.2); Eosinophils Absolute Auto 0.1 K/mm3 (0-0.3); Eosinophils Percent Auto 1.5 % (0-4.4); Hematocrit 32.5 % (37.0-47.0); Hemoglobin 10.7 g/dL (12.0-15.0); Immature Granulocyte Absolute 0.01 K/mm3 (0.00-0.031); Immature Granulocyte Percent A 0.2 % (0-0.5); Lymphocytes Absolute Auto 0.42 K/mm3 (0.9-3.2); Lymphocytes Percent Auto 9.2 % (18.3-44.2); Mean Corpuscular HGB Conc 32.9 g/dl (32-36); Mean Corpuscular Hemoglobin 30.3 pg (26-34); Mean Corpuscular Volume 92.1 fl (80-100); Mean Platelet Volume 10.9 fl (7.4-10.4); Monocytes Absolute Auto 0.7 K/mm3 (0.1-0.6); Monocytes Percent Auto 14.7 % (2.6-8.5); Neutrophils Absolute Auto 3.4 K/mm3 (1.3-6.7); Neutrophils Percent Auto 73.5 % (45.5-73.1); Platelet Count Result 154 k/mm3 (150-375); Red Blood Count 3.53 M/mm3 (4.2-5.4); White Blood Count 4.6 K/mm3 (4.5-10.0)
[2021-10-29 05:52] LABS: Anion Gap 5 mmol/L (8-16); Blood Urea Nitrogen 23 mg/dL (7-17); Calcium 8.2 mg/dL (8.4-10.2); Carbon Dioxide 29 mmol/L (22-30); Chloride 100 mmol/L (98-107); Estimated CRCL calculation 28 ml/min; Estimated Glomerular Filt Rate 53; Glucose 81 mg/dL (65-110); Potassium 4.1 mmol/L (3.4-5.0); Sodium 134 mmol/L (137-145)
[2021-10-29 08:38] LABS: Digoxin 0.8 ng/mL (0.8-2.0)
[2021-10-29 08:46] LABS: Troponin I < 0.012 ng/mL (0.000-0.034)
[2021-10-29] MEDS: carvediloL 6.25 MG TABLET PO ×2 (09:33→17:54)
[2021-10-29] MEDS: DIGOXIN TAB 125 MCG TABLET PO (09:34)
[2021-10-29] MEDS: FUROSEMIDE INJ 100 MG/10 ML VIAL 60 MG IV PUSH ×2 (09:34→17:54)
[2021-10-29] MEDS: APIXABAN 2.5 MG TABLET PO ×2 (09:34→20:47)
[2021-10-29] MEDS: POTASSIUM CHLORIDE 20 MEQ TABLET.ER PO ×2 (09:34→17:54)
[2021-10-29] MEDS: ceFAZolin 2 GM/D5W 50 ML 2 GM/50 ML BAG IVPB (12:56)
--- NOTE | 2021-10-29 14:31 | PM.IMPN ---
Progress Note: A&P Assessment and Plan (1) Cellulitis: Qualifiers: Laterality: right Site of cellulitis: extremity Site of cellulitis of extremity: lower extremity Qualified Code(s): L03.115 - Cellulitis of right lower limb Code(s): L03.90 - Cellulitis, unspecified Status: Acute Assessment and Plan: Patient does have a significant cellulitis to her left lower extremity. WBC normal. Patient did receive a loading dose of vancomycin in the emergency room. Will have pharmacy to dose vancomycin and follow. Was given one dose of cefepime. Continue Vanco and add Cefazolin. Follow up on cultures. (2) CHF (congestive heart failure): Qualifiers: Heart failure chronicity: chronic Heart failure type: unspecified Qualified Code(s): I50.9 - Heart failure, unspecified Code(s): I50.9 - Heart failure, unspecified Status: Chronic Assessment and Plan: Patient does have significant edema noted to bilateral lower extremities. CXR showing CMG and bibasilar infiltrates. BNP 5K. Patient on Lasix 40mg bud at home. She was started on Lasix 60 mg IV b.i.d. Echo pending. Cr and BP stable. Continue IV Lasix for now. Elevated LE. Tedhose in 1-2 days. (3) Atrial fibrillation: Qualifiers: Atrial fibrillation type: paroxysmal Qualified Code(s): I48.0 - Paroxysmal atrial fibrillation Code(s): I48.91 - Unspecified atrial fibrillation Status: Acute Assessment and Plan: Patient with chronic atrial fibrillation with a controlled ventricular rate. Digoxin level okay. Continue Coreg and Digoxin. She remains on Eliquis. (4) Anemia: Qualifiers: Anemia type: unspecified type Qualified Code(s): D64.9 - Anemia, unspecified Code(s): D64.9 - Anemia, unspecified Status: Acute Assessment and Plan: Hgb normal in January but 11.6 on admission. Hgb dropped today despite the diuresis. Will follow. Transfuse if needed. (5) PAD (peripheral artery disease): Code(s): I73.9 - Peripheral vascular disease, unspecified Status: Acute Assessment and Plan: Arterial doppler of the LE showing Rt TBI 0.63 and left at 0.64. Will start PT/OT. Increase activity as tolerated (6) DVT prophylaxis: Code(s): Z29.9 - Encounter for prophylactic measures, unspecified Status: Acute Assessment and Plan: Barbara Subjective Date/time seen: 10/29/21 14:31 Interval history: 86yo female with cAFib, CHF and CAD here for bilateral lower extremity swelling and pain, L>R. No CP. Denies SOB. Does still have SANTANA. No leg pain but tingling. Eating okay. Exam Narrative: AF 96.9 113/59 72 22 91% ra Gen - NARD lying almost flat in bed Chest - few bibasilar inspiratory crackles o/w clear, nml RR CV - irregularly irregular with 2/6 systolic murmur LSB. Abd - Soft, NT/ND, Positive BS Ext - 3+ pitting pedal edema Psych - Nml mood and affect Skin - Warm and dry. wrinkling to the bilateral LE. fading erythema LLE with hematoma mid pollard Objective Data Vital Signs Vital Signs: Vital Signs - 24 hr 10/28/21 16:19 10/28/21 17:00 10/28/21 18:25 Temperature 98.0 F Pulse Rate 72 69 57 L Respiratory Rate 28 H 27 H 16 Blood Pressure 137/78 134/64 133/55 L Pulse Oximetry 100 100 100 10/28/21 21:21 10/28/21 22:00 10/29/21 05:27 Temperature 96.8 F L 96.9 F L Pulse Rate 72 70 71 Respiratory Rate 24 H 22 H Blood Pressure 122/74 113/59 L Pulse Oximetry 99 91 10/29/21 09:33 10/29/21 09:34 Temperature Pulse Rate 72 72 Respiratory Rate Blood Pressure Pulse Oximetry Intake/Output Intake/Output: Intake & Output 10/26/21 10/27/21 10/28/21 10/29/21 23:59 23:59 23:59 23:59 Intake Total 300 360 Output Total 900 Balance 300 -540 Meds/Results Medications: Active Medications Generic Name Dose Route Start Last Admin Trade Name Freq PRN Reason Stop Dose Admin Apixaban 2.5 mg 05
[2021-10-30] VITALS (7 sets, daily range): BP systolic 109–135; BP diastolic 61–76; PULSE 61–80; RESP 16–20; TEMP 36.3–36.9; O2SAT 92–98
[2021-10-30 05:49] LABS: Hematocrit 34.6 % (37.0-47.0); Hemoglobin 11.1 g/dL (12.0-15.0); Mean Corpuscular HGB Conc 32.1 g/dl (32-36); Mean Corpuscular Hemoglobin 30.2 pg (26-34); Mean Corpuscular Volume 94.3 fl (80-100); Mean Platelet Volume 10.9 fl (7.4-10.4); Platelet Count Result 167 k/mm3 (150-375); Red Blood Count 3.67 M/mm3 (4.2-5.4); Red Cell Distribution Width 17.2 % (11.5-14.5); White Blood Count 4.6 K/mm3 (4.5-10.0)
[2021-10-30 05:56] LABS: Anion Gap 6 mmol/L (8-16); Blood Urea Nitrogen 20 mg/dL (7-17); Calcium 8.3 mg/dL (8.4-10.2); Carbon Dioxide 28 mmol/L (22-30); Chloride 97 mmol/L (98-107); Estimated CRCL calculation 34 ml/min; Estimated Glomerular Filt Rate > 60; Glucose 96 mg/dL (65-110); Potassium 3.2 mmol/L (3.4-5.0); Sodium 131 mmol/L (137-145)
[2021-10-30] MEDS: ACETAMINOPHEN 325 MG TABLET 650 MG PO ×2 (08:03→16:39)
[2021-10-30] MEDS: POTASSIUM CHLORIDE 20 MEQ TABLET PO (08:03)
[2021-10-30] MEDS: DIGOXIN TAB 125 MCG TABLET PO (08:04)
[2021-10-30] MEDS: APIXABAN 2.5 MG TABLET PO ×2 (08:04→20:34)
[2021-10-30] MEDS: carvediloL 6.25 MG TABLET PO ×2 (08:04→16:38)
[2021-10-30] MEDS: POTASSIUM CHLORIDE 20 MEQ TABLET.ER PO ×2 (08:04→16:37)
[2021-10-30] MEDS: FUROSEMIDE INJ 100 MG/10 ML VIAL 60 MG IV PUSH ×2 (08:04→16:38)
--- NOTE | 2021-10-30 11:45 | PM.IMPN ---
Progress Note: A&P Assessment and Plan (1) Cellulitis: Qualifiers: Site of cellulitis: extremity Site of cellulitis of extremity: lower extremity Laterality: right Qualified Code(s): L03.115 - Cellulitis of right lower limb Code(s): L03.90 - Cellulitis, unspecified Status: Acute Assessment and Plan: Patient presents with cellulitis to her left lower extremity. Probably related to recent trauma and hematoma. WBC normal. Was started on Vancomycin and given one dose of cefepime. Cefazolin added. Continue Cefazolin but will stop Vanco. All cultures negative. (2) CHF (congestive heart failure): Qualifiers: Heart failure type: unspecified Heart failure chronicity: chronic Qualified Code(s): I50.9 - Heart failure, unspecified Code(s): I50.9 - Heart failure, unspecified Status: Chronic Assessment and Plan: Patient does have significant edema noted to bilateral lower extremities. CXR showing CMG and bibasilar infiltrates. BNP 5K. Patient on Lasix 40mg bid at home. She was started on Lasix 60 mg IV b.i.d. here with good clinical response. Echo showing EF 65-70% with indeterminate diastolic function. RV chamber dimension is severely enlarged but normal RV systolic function. Biatrial enlargement R>L, severe TR and moderate pulm HTN (PASP 46 mmHg). Patient with Acute on Chronic Right sided CHF. Cr and BP remaining stable. Continue IV Lasix for today and convert to oral tomorrow. Elevated LE. Add Adonis Hose (3) Atrial fibrillation: Qualifiers: Atrial fibrillation type: paroxysmal Qualified Code(s): I48.0 - Paroxysmal atrial fibrillation Code(s): I48.91 - Unspecified atrial fibrillation Status: Acute Assessment and Plan: Patient with chronic atrial fibrillation with a controlled ventricular rate. Digoxin level okay. Continue Coreg and Digoxin. She remains on Eliquis. (4) Anemia: Qualifiers: Anemia type: unspecified type Qualified Code(s): D64.9 - Anemia, unspecified Code(s): D64.9 - Anemia, unspecified Status: Acute Assessment and Plan: Hgb normal in January but 11.6 on admission. Hgb did drop but better and back to baseline. Will follow. Transfuse if needed. (5) PAD (peripheral artery disease): Code(s): I73.9 - Peripheral vascular disease, unspecified Status: Acute Assessment and Plan: Arterial doppler of the LE showing Rt TBI 0.63 and left at 0.64. Will start PT/OT. Increase activity as tolerated. Defer to her Upsetter (6) DVT prophylaxis: Code(s): Z29.9 - Encounter for prophylactic measures, unspecified Status: Acute Assessment and Plan: Barbara Durham Date/time seen: 10/30/21 11:45 Interval history: 86yo female with cAFib, CHF and CAD here for bilateral lower extremity swelling and pain, L>R. No complaints. No CP or SOB. Leg pain better. Eating well. Exam Narrative: AF 98.4 109/67 76 18 92% ra Gen - NARD sitting up in chair Chest - CTA bilaterally, nml RR CV - irregularly irregular with 2/6 systolic murmur LSB Abd - Soft, NT/ND, Positive BS Ext - 1+ pitting pedal edema Psych - Nml mood and affect Skin - Warm and dry. Increased bilateral LE wrinkling. Fading erythema LLE without warmth. Dark purple raised hematoma mid pollard without drainage Objective Data Vital Signs Vital Signs: Vital Signs - 24 hr 10/29/21 14:00 10/29/21 17:54 10/29/21 20:00 Temperature 97.7 F Pulse Rate 77 78 78 Respiratory Rate 16 16 Blood Pressure 144/72 H Pulse Oximetry 97 93 10/29/21 21:38 10/29/21 22:00 10/30/21 06:00 Temperature 97.7 F 98.4 F Pulse Rate 71 74 Respiratory Rate 18 18 Blood Pressure 116/68 109/67 Pulse Oximetry 93 98 92 10/30/21 08:04 Temperature Pulse Rate 76 Respiratory Rate Blood Pressure Pulse Oximetry Intake/Output Intake/Output: Intake & Output 10/27/21 10/28/21 10/29/21 10/30/21 23:59
[2021-10-31 05:15] VITALS: O2SAT 97
[2021-10-31 06:00] VITALS: BP 138/52; PULSE 89; RESP 22; TEMP 36.6; O2SAT 91
[2021-10-31 06:17] LABS: Anion Gap 5 mmol/L (8-16); Blood Urea Nitrogen 21 mg/dL (7-17); Calcium 8.3 mg/dL (8.4-10.2); Carbon Dioxide 30 mmol/L (22-30); Chloride 98 mmol/L (98-107); Estimated CRCL calculation 38 ml/min; Estimated Glomerular Filt Rate > 60; Glucose 76 mg/dL (65-110); Potassium 3.6 mmol/L (3.4-5.0); Sodium 133 mmol/L (137-145)
[2021-10-31 09:15] VITALS: PULSE 90
[2021-10-31] MEDS: carvediloL 6.25 MG TABLET PO (09:15)
[2021-10-31] MEDS: POTASSIUM CHLORIDE 20 MEQ TABLET.ER PO (09:15)
[2021-10-31 09:17] VITALS: PULSE 90
[2021-10-31] MEDS: DIGOXIN TAB 125 MCG TABLET PO (09:17)
[2021-10-31] MEDS: APIXABAN 2.5 MG TABLET PO (09:17)
--- NOTE | 2021-10-31 10:23 | PM.DS ---
DS: Admitting Diagnosis Discharge Date 10/31/21 Admitting Diagnosis Left lower extremity pain DS: Discharge Diagnosis Discharge Diagnosis (1) Cellulitis: Qualifiers: Site of cellulitis: extremity Site of cellulitis of extremity: lower extremity Laterality: right Qualified Code(s): L03.115 - Cellulitis of right lower limb Code(s): L03.90 - Cellulitis, unspecified Status: Acute Assessment and Plan: Patient presents with cellulitis to her left lower extremity. Probably related to recent trauma and hematoma. WBC was normal. She was started on Vancomycin and given one dose of cefepime. Cefazolin added and Vancomycin stopped. All cultures NGTD. (2) CHF (congestive heart failure): Qualifiers: Heart failure type: unspecified Heart failure chronicity: chronic Qualified Code(s): I50.9 - Heart failure, unspecified Code(s): I50.9 - Heart failure, unspecified Status: Chronic Assessment and Plan: Patient does have significant edema noted to bilateral lower extremities. CXR showing CMG and bibasilar infiltrates. BNP 5K. Patient on Lasix 40mg bid at home. She was started on Lasix 60 mg IV b.i.d. here with good clinical response. Echo showing EF 65-70% with indeterminate diastolic function. RV chamber dimension is severely enlarged but normal RV systolic function. Biatrial enlargement R>L, severe TR and moderate pulm HTN (PASP 46 mmHg). Patient with Acute on Chronic Right sided CHF. Cr and BP remained stable with diuresis. Changed to oral Lasix with small increase in dose. Continue Adonis Hose. (3) Atrial fibrillation: Qualifiers: Atrial fibrillation type: paroxysmal Qualified Code(s): I48.0 - Paroxysmal atrial fibrillation Code(s): I48.91 - Unspecified atrial fibrillation Status: Acute Assessment and Plan: Patient with chronic atrial fibrillation with a controlled ventricular rate. Digoxin level okay. We continued Coreg and Digoxin. She remained on Eliquis. (4) Anemia: Qualifiers: Anemia type: unspecified type Qualified Code(s): D64.9 - Anemia, unspecified Code(s): D64.9 - Anemia, unspecified Status: Acute Assessment and Plan: Hgb normal in January but 11.6 on admission and remained stable. (5) PAD (peripheral artery disease): Code(s): I73.9 - Peripheral vascular disease, unspecified Status: Acute Assessment and Plan: Arterial doppler of the LE showing Rt TBI 0.63 and left at 0.64. She worked with PT/OT. Increase activity as tolerated. Defer further evaluation/treatment per her Greeting Card Maker DS: Summary Hospital Course Reason for hospitalization: 86yo female with cAFib, CHF and CAD here for bilateral lower extremity swelling with erythema to the left LE. Please see H&P for details Hospital Course: Please see above for details of hospital course Status at Discharge Cognitive/behavioral status at discharge: Stable Time Spent with Patient Time attestation: Total time spent providing and/or coordinating discharge services: 35 minutes Time spent: Greater than 30 minutes Exam Narrative: AF 97.8 138/52 90 22 91% ra Gen - NARD Chest - CTA bilaterally, nml RR CV - irregularly irregular Abd - Soft, NT/ND, Positive BS Ext - trace-1+ pitting pedal edema Psych - Nml mood and affect Skin - Warm and dry. Bilateral LE wrinkling. Fading erythema LLE without warmth. Dark purple raised hematoma mid pollard without drainage unchanged DS: Data Data Completed and Pending Labs on day of discharge: Labs from last 24 hours 10/31/21 05:37 Sodium 133 L Potassium 3.6 Chloride 98 Carbon Dioxide 30 Anion Gap 5 L BUN 21 H Creatinine 0.70 Estim Creat Clear Calc 38 Estimated GFR > 60 Glucose 76 Calcium 8.3 L Preliminary micro results at discharge 10/28/21 16:48 Wound Culture - Preliminary Leg Left 10/28/21 10:43 Blood Culture - Preliminary Blood
--- NOTE | 2021-11-04 10:19 | PC.NURSE ---
Blood cx and wound cx are negative. Dr. Britta escamilla.
== END 2021-10-31 13:05 | DRG 603 ==
LOC: ANHED 10:30 → ANH3MED 16:04
PROVIDERS: Nurse Practitioner Adult Health; Physician Assistant; Admitting Provider Internal Medicine; Emergency Provider Emergency Medicine; PCP Family Medicine; Visit Provider Internal Medicine
DX: L03.116 Cellulitis of left lower limb (principal); I48.20 Chronic atrial fibrillation, unspecified; R64 Cachexia; Z68.1 Body mass index [BMI] 19.9 or less, adult; I11.0 Hypertensive heart disease with heart failure; I50.813 Acute on chronic right heart failure; Z20.822 Contact with and (suspected) exposure to COVID-19; D64.9 Anemia, unspecified; I73.9 Peripheral vascular disease, unspecified; I25.10 Atherosclerotic heart disease of native coronary artery without angina pectoris; S80.12XA Contusion of left lower leg, initial encounter; X58.XXXA Exposure to other specified factors, initial encounter; L71.9 Rosacea, unspecified; Z79.01 Long term (current) use of anticoagulants; Z95.1 Presence of aortocoronary bypass graft
CPT/HCPCS: 36415; 71045; 80048; 80053; 80162; 81001; 83605; 83735; 83880; 84484; 85025; 85027; 87040; 87070; 87205; 93005; 93306; 93923; 96365; 96367; 96375; 96376; 97161; 97165; 99285; A9270; C9803; G0378; J0690; J0692; J1940; J3370; U0003; U0005

== ENCOUNTER 2021-12-05 14:20 | Emergency (ER) | payer MEDICARE, SELFPAY ==
[2021-12-05] VITALS (20 sets, daily range): BP systolic 133–164; BP diastolic 69–89; PULSE 74–85; RESP 16–20; TEMP 36.6; O2SAT 91–100
--- NOTE | ~2021-12-05 | CT_ITS ---
EXAMINATION: CT lumbar spine wo con DATE: 12/05/2021 15:47 INDICATION: Low back pain. Fall. TECHNIQUE: Computed tomography (CT) of the lumbar spine was performed without intravenous contrast. A utomated exposure control and iterative reconstruction technique were employed. The dose-length produ ct was 350.82 mGy-cm. COMPARISON: None FINDINGS: There is a small volume of ascites. There are chronic fractures of T12-L4 vertebral bodies with changes of vertebroplasties. There is mild chronic height loss of L5 vertebral body. There is mi ldly decreased disc height at L4-L5. The following disc levels are specifically discussed: L1-L2: The disc is mildly bulging. There is moderate bilateral facet joint osteoarthritis. There is m ild bilateral neural foraminal stenosis. There is no central canal stenosis. L2-L3: The disc does not extend beyond the endplate margin. There is severe bilateral facet joint ost eoarthritis. There is mild bilateral neural foraminal stenosis. There is no central canal stenosis. L3-L4: The disc does not extend beyond the endplate margin. There is ankylosis of the facet joints wi th moderate hypertrophy. There is mild bilateral neural foraminal stenosis. There is no central canal stenosis. L4-L5: The disc is bulging. There is severe bilateral facet joint osteoarthritis. There is moderate r ight and mild left neural foraminal stenosis. There is mild central canal stenosis. L5-S1: The disc is bulging. There is severe bilateral facet joint osteoarthritis. There is mild bilat eral neural foraminal stenosis. There is no central canal stenosis. IMPRESSION: 1. No acute fracture. 2. Mild lumbar spondylosis. Reviewed, dictated and finalized at location B.
--- NOTE | ~2021-12-05 | XR_ITS ---
XR chest 1V 12/05/2021 16:03 Indication: Status post fall. Chest pain. Procedure: AP view of the chest Comparison: 10/28/2021 Findings: Status post median sternotomy for CABG. Cardiomegaly. No focal air space disease, pulmonary edema, pleural effusion or suspected pneumothorax. Generalized osteopenia. Vertebroplasty changes in multiple lower thoracic and lumbar vertebra. Impression: 1: No acute cardiopulmonary disease. 2: Cardiomegaly. Reviewed, dictated and finalized at location A. Impression: 1: No acute cardiopulmonary disease. 2: Cardiomegaly.
--- NOTE | ~2021-12-05 | CT_ITS ---
EXAMINATION: CT brain wo con DATE: 12/05/2021 15:41 INDICATION: Head injury. TECHNIQUE: Computed tomography (CT) of the head was performed without intravenous contrast. The mA wa s adjusted according to patient size. Iterative reconstruction technique was employed. The dose-lengt h product was 605.33 mGy-cm. 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 There are scattered areas of low attenuation in the cerebral white matter. There is no intracranial hemorrhage, acute infarction, or abnormal intrac ranial mass lesion. The ventricles are normal in size. There are likely changes of ocular lens replac ement surgeries. The paranasal sinuses are clear. The mastoid air cells are normal. IMPRESSION: 1. Old infarct in left cerebellum. 2. Stable mild nonspecific cerebral white matter disease, which likely represents chronic small vesse l ischemic disease. Reviewed, dictated and finalized at location B. IMPRESSION: 1. Old infarct in left cerebellum. 2. Stable mild nonspecific cerebral white matter disease, which likely represen ts chronic small vessel ischemic disease.
--- NOTE | ~2021-12-05 | XR_ITS ---
EXAMINATION: XR elbow RT min 3V DATE: 12/05/2021 16:02 INDICATION: Right elbow injury. TECHNIQUE: 4 views of right elbow were obtained. COMPARISON: None. FINDINGS: Bone alignment is normal. No fracture. Joint spaces are normal. There are enthesophytes at medial and lateral humeral epicondyles. No elbow joint effusion. IMPRESSION: 1. No fracture. Reviewed, dictated and finalized at location B. IMPRESSION: 1. No fracture.
--- NOTE | ~2021-12-05 | XR_ITS ---
XR hip RT 2V w AP pelvis 12/05/2021 16:03 Indication: Right hip pain after fall Procedure: 3 views right hip Comparison: No prior studies for comparison. Findings: Osteopenia. Pelvic rings are intact. 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 Sacral arcadio en are symmetric. There is osteitis pubis. No acute fracture or traumatic malalignment. There are juliet tebroplasty changes in the lower lumbar spine. Impression: 1: No acute fracture. Reviewed, dictated and finalized at location A. Impression: 1: No acute fracture.
--- NOTE | 2021-12-05 15:00 | PC.NURSE ---
PA at bedside to assess pt.
--- NOTE | 2021-12-05 15:12 | ECG_ITS ---
Measurements Intervals [place] Rate: 72 P: DE: 0 QRS: 123 QRSD: 114 T: -62 QT: 375 QTc: 413 Interpretive Statements ATRIAL FIBRILLATION BASELINE ARTIFACT INCOMPLETE RIGHT BUNDLE BRANCH BLOCK [90+ ms QRS DURATION, TERMINAL R IN V1/V2, 40+ ms S IN I/aVL/V4/V5/V6] ST DEVIATION AND MODERATE T-WAVE ABNORMALITY, CONSIDER ANTERIOR AND INFERIOR ISCHEMIA ABNORMAL ECG COMPARED TO ECG 10/28/2021 16:03:31 ST ABNORMALITY SOMEWHAT MORE PROMINENT IN ANTERIOR LEADS INCOMPLETE RIGHT BUNDLE-BRANCH BLOCK NOW PRESENT Electronically Signed On 12-06-2021 11:18:36 CDT by Dariel Calderón M.D.
--- NOTE | 2021-12-05 15:25 | ED.FALL ---
HPI - Fall General Chief Complaint: Fall Stated Complaint: Fall Time Seen by Provider: 12/05/21 14:41 Source: patient and family Mode of arrival: wheelchair Limitations: no limitations History of Present Illness HPI Narrative: This is a 86 year old female that presents to the ER after a fall today. Patient's daughter brought her in for evaluation. Patient lives in assisted living. Reportedly her daughter went to see her today and she was sat on the floor in front of her cough. Patient does not think that she hit her head. She did not lose consciousness. Reports an abrasion to the right elbow. Also reports pain in her buttock and right hit. She denies any prodromal symptoms. Daughter reports she has a wound to the left leg for which she is currently seeing wound care weekly. She reports history of PAD for which patient has no desire to have any further intervention. Her lower extremities are chronically discolored due to this. Denies chest pain or shortness of breath. Related Data Home Medications Medication Instructions Recorded Confirmed carvedilol 6.25 mg tablet 6.25 mg PO BID 12/16/20 11/24/21 digoxin 125 mcg (0.125 mg) tablet 125 mcg PO DAILY 12/16/20 11/24/21 Allergies Allergy/AdvReac Type Severity Reaction Status Date / Time No Known Allergies Allergy Verified 12/05/21 15:54 Review of Systems Review of Systems: CONSTITUTIONAL: Denies fever EYES: Denies visual changes CARDIOVASCULAR: Denies chest pain, or edema. RESPIRATORY: Denies dyspnea. GASTROINTESTINAL: Denies vomiting MUSCULOSKELETAL: Reports back pain, joint pain, and myalgia. NEUROLOGIC: Denies numbness, or weakness. All systems reviewed & are unremarkable except as noted in HPI and below PMFSH Past Medical History Medical History Adult BMI <19 kg/sq m Anemia Atrial fibrillation Body mass index less than 16.5 CHF (congestive heart failure) Coronary artery disease Leg wound, left Rosacea Trigeminal neuralgia Wart of hand Weight loss, unintentional Family History Family History Father Acute myocardial infarction Cerebrovascular accident Other Pancreatic cancer Social History Social History Smoking status: Never smoker Alcohol intake: never Substance use: never Gender identity (if verbalized by the patient): Female Spiritual care concerns: Yes Exam Narrative: GENERAL: Elderly, well-nourished, and in no acute distress. HEAD: Normocephalic, atraumatic. EYES: PERRLA and EOMI. ENT: Nares clear, no rhinorrhea or epistaxis. Mucous membranes moist. Oropharynx without tonsillar hypertrophy exudate or other lesions. Bilateral TMs pearly guzman non-bulging NECK: Supple. No adenopathy or masses. No midline spinal tenderness CHEST: Clear to auscultation. No respiratory distress. No wheezes rales or rhonchi HEART: Regular rate and rhythm. No murmur heard. Normal peripheral pulses. BACK: No midline thoracic spine tenderness. Tender to palpation of midline lower lumbar spine EXTREMITIES: Normal range of motion. No edema or obvious deformity. Purple discoloration of the bilateral lower legs and feet. No erythema or warmth. Small wound to the left lower leg without abnormal drainage or redness. Unable to palpate DP pulses. We are able to doppler DP pulses bilaterally. Normal sensation in the lower extremities SKIN: Warm, dry, no rash. NEURO: No focal deficits. Alert and oriented x3. Cranial nerves II through XII grossly intact PSYCH: Normal mood and affect Course Vital Signs Vital signs: Vital Signs Pulse Oximetry 96 12/05/21 15:21 Blood Pressure 164/70 H 12/05/21 17:31 Pulse Oximetry 97 12/05/21 17:31 MDM - Fall MDM Narrative Medical decision making narrative: Patient presents to the ER after a fall today. She is afebrile and nontoxic-appearing. S
--- NOTE | 2021-12-05 15:53 | PC.NURSE ---
Patient off unit to Radiology.
[2021-12-05 15:58] LABS: Basophils Percent Auto 0.7 % (0.2-1.2); Eosinophils Absolute Auto 0.1 K/mm3 (0-0.3); Eosinophils Percent Auto 1.4 % (0-4.4); Hematocrit 41.4 % (37.0-47.0); Hemoglobin 12.8 g/dL (12.0-15.0); Immature Granulocyte Absolute 0.02 K/mm3 (0.00-0.031); Immature Granulocyte Percent A 0.5 % (0-0.5); Lymphocytes Absolute Auto 0.29 K/mm3 (0.9-3.2); Mean Corpuscular HGB Conc 30.9 g/dl (32-36); Mean Corpuscular Hemoglobin 30.2 pg (26-34); Mean Corpuscular Volume 97.6 fl (80-100); Mean Platelet Volume 11.2 fl (7.4-10.4); Monocytes Absolute Auto 0.4 K/mm3 (0.1-0.6); Monocytes Percent Auto 9.9 % (2.6-8.5); Neutrophils Absolute Auto 3.3 K/mm3 (1.3-6.7); Neutrophils Percent Auto 80.5 % (45.5-73.1); Platelet Count Result 179 k/mm3 (150-375); Red Blood Count 4.24 M/mm3 (4.2-5.4); Red Cell Distribution Width 17.3 % (11.5-14.5); White Blood Count 4.2 K/mm3 (4.5-10.0)
[2021-12-05 16:10] LABS: Alanine Aminotransferase 17 U/L (6-35); Albumin Level 4.3 g/dL (3.5-5.1); Alkaline Phosphatase 99 U/L (38-126); Anion Gap 6 mmol/L (8-16); Aspartate Amino Transferase 31 U/L (14-36); Bilirubin,Total 1.9 mg/dL (0.2-1.3); Blood Urea Nitrogen 13 mg/dL (7-17); Calcium 8.7 mg/dL (8.4-10.2); Carbon Dioxide 32 mmol/L (22-30); Chloride 97 mmol/L (98-107); Estimated Glomerular Filt Rate 60; Glucose 187 mg/dL (65-110); Potassium 3.8 mmol/L (3.4-5.0); Sodium 135 mmol/L (137-145)
[2021-12-05 16:18] LABS: NT Pro B Type Natriuretic Pept 5340 pg/mL (5-100)
[2021-12-05 16:27] LABS: INR 1.6; Prothrombin Time 18.5 Seconds (11.1-14.7)
[2021-12-05 16:29] LABS: Partial Thromboplastin Time 38.3 SECONDS (22.3-36.8)
[2021-12-05 16:40] LABS: Hemoglobin A1C 6.3 % (<5.7)
[2021-12-05 16:59] LABS: Creatine Kinase 26 U/L (30-135)
[2021-12-05 17:21] LABS: Digoxin 0.9 ng/mL (0.8-2.0)
[2021-12-05 17:21] LABS: Appearance Urine Clear (Clear); Bilirubin Urine Negative (Negative); Color Urine Yellow (Yellow); Glucose Urine UA Negative (Negative); Ketones Urine Negative (Negative); Leukocyte Esterase Ur Negative LEU/UL (Negative); Nitrate Urine Negative (Negative); Protein Urine Negative (Negative); Specific Grav Ur 1.015 (1.001-1.035); pH Urine 7.5 (5.0-9.0)
[2021-12-05 17:25] LABS: Add Urine Microscopic? YES; Blood Urine Trace-Intact (Negative)
[2021-12-05 17:26] LABS: Squamous Epithelial Cell Urine Rare /hpf (Few); WBC Urine 0-3 /hpf
== END 2021-12-05 18:44 ==
PROVIDERS: Physician Assistant; Emergency Provider Emergency Medicine; PCP Family Medicine
DX: S79.911A Unspecified injury of right hip, initial encounter (principal); S50.311A Abrasion of right elbow, initial encounter; R73.03 Prediabetes; I48.91 Unspecified atrial fibrillation; I50.9 Heart failure, unspecified; I25.10 Atherosclerotic heart disease of native coronary artery without angina pectoris; Z86.2 Personal history of diseases of the blood and blood-forming organs and certain disorders involving the immune mechanism; Z79.01 Long term (current) use of anticoagulants; R90.82 White matter disease, unspecified; M47.816 Spondylosis without myelopathy or radiculopathy, lumbar region; I51.7 Cardiomegaly; I45.10 Unspecified right bundle-branch block; R94.31 Abnormal electrocardiogram [ECG] [EKG]; W07.XXXA Fall from chair, initial encounter
CPT/HCPCS: 36415; 70450; 71045; 72131; 73080; 73502; 80053; 80162; 81001; 82550; 83036; 83880; 85025; 85610; 85730; 93005; 99284

== ENCOUNTER 2022-01-06 07:21 | Outpatient (RCR) | payer MEDICARE, SELFPAY ==
[2021-11-24 12:00] VITALS: BMI 18.6
--- NOTE | 2021-12-16 10:06 | PCWOUND ---
WOCN NOTE patient's daughter in law called to cancel appointment for today to patients inability to get around due to fall last week. Will contact wound center to reschedule.
--- NOTE | 2022-01-20 11:06 | PCWOUND ---
WOCN NOTE Patient this am.
== END 2022-01-20 11:07 | disposition home or self-care (01) ==
LOC: ANHWOC 07:21
PROVIDERS: PCP Family Medicine; Visit Provider Family Medicine
DX: S81.802D Unspecified open wound, left lower leg, subsequent encounter (principal); I73.9 Peripheral vascular disease, unspecified
CPT/HCPCS: 99212; 99213; G0463